=== PATIENT | female | born 2000 | race African-American/Black ===

== ENCOUNTER 2023-11-17 23:12 | Emergency (ER) | payer MEDICAID ==
[~2023-11-17] VITALS: Ht 170.2 cm; Wt 52.0 kg
[2023-11-17 23:38] VITALS: O2SAT 99
[2023-11-18 00:58] LABS: BASOPHILS % 0.3 % (0.0-2.0); EOSINOPHILS % 1.6 % (0.0-5.0); HEMATOCRIT. 31.2 % (36.0-48.0); HEMOGLOBIN. 10.4 g/dL (12.0-16.0); MEAN CORPUSCULAR HEMOGLOBIN 28.1 pg (28.0-32.0); MEAN CORPUSCULAR HGB CONC 33.3 g/dL (31.0-37.0); MEAN CORPUSCULAR VOLUME 84.2 fL (81.0-99.0); MEAN PLATELET VOLUME 7.4 fl (7.4-10.4); MONOCYTES % 5.2 % (2.0-8.0); NEUTROPHILS % 63.9 % (40.0-76.0); PLATELET 338 x1000/uL (130-400); RED BLOOD CELL COUNT 3.71 mill/uL (4.2-5.4); RED CELL DISTRIBUTION WIDTH 13.2 % (11.6-14.6); WHITE BLOOD COUNT 10.8 x1000/uL (4.5-11.0)
[2023-11-18 01:04] LABS: CHLORIDE 105 mEq/L (98-107); POTASSIUM 3.3 mEq/L (3.5-5.1); SODIUM 136 mEq/L (136-145)
[2023-11-18 01:05] LABS: CALCIUM 8.8 mg/dL (8.7-10.4); CARBON DIOXIDE 25 mEq/L (21-32)
[2023-11-18 01:09] LABS: HCG SCREEN POSITIVE
[2023-11-18 01:10] LABS: CREATININE 0.5 mg/dL (0.6-1.0); GLUCOSE 82 mg/dL (70-105); UREA NITROGEN BLOOD 7 mg/dL (9-23)
[2023-11-18 01:26] LABS: B-HCG QUANTITATIVE 13830 mIU/mL (<3)
[2023-11-18] MEDS ORDERED: ONDA4TAB11 PO (01:35)
[2023-11-18 02:06] VITALS: BP 106/65; PULSE 79; RESP 19; TEMP 98
== END 2023-11-18 02:09 | disposition home or self-care (01) ==
LOC: ER 23:12
DX: R11.2 Nausea with vomiting, unspecified (principal); N93.9 Abnormal uterine and vaginal bleeding, unspecified; Z98.890 Other specified postprocedural states
CPT/HCPCS: 36415; 76805; 76817; 99284; 80048; 84703; 84702; 85025; 86850; 86900; 86901; Z7610